=== PATIENT | male | born 1960 | race African-American/Black ===

== ENCOUNTER 2016-07-11 12:57 | Observation (INO) ==
--- NOTE | 2016-07-11 13:39 | Emergency Department Note ---
Holden Link Meredith, am scribing for, and in the presence of, Toby Titus MD 13: 20. Ariela Link James D, MD, personally performed the services described in this documentation, ascribed by Flor Hatch in my presence, and it is both accurate and complete [id number] . Arrival - Arrival Chief Complaint: Chest Pain Stated Complaint: CHEST PAIN ED Nursing Triage Note: Pt c/o left sided chest pain with SOB and nausea since last wk. Mode of Arrival: Ambulatory Limitations: No Limitations Source: Patient, Old Records Reviewed, RN Notes Reviewed Time Seen by Provider: 07/11/16 13:16 - History of Present Illness HPI Narrative: Pt is a 56 y/o black male reporting to the ED with c/o left-sided chest pain since last week. He states it's a "funny feeling like swelling". Pt denies any shortness of breath or nausea. He is a current everyday smoker. Pt has a history of HTN, COPD, and chronic back pain. Onset (ago): week(s) Allergies/Adverse Reactions: Allergies Allergy/AdvReac Type Severity Reaction Status Date / Time povidone-iodine Allergy RASH Verified 10/26/14 14:55 [From Betadine] soap [From Betadine] Allergy RASH Verified 10/26/14 14:55 Sulfa (Sulfonamide Allergy RASH Verified 06/03/16 06:53 Antibiotics) sulfamethoxazole Allergy RASH Verified 10/31/15 08:19 [From Bactrim] trimethoprim [From Bactrim] Allergy RASH Verified 10/31/15 08:19 Home Medications: Home Medications Medication Instructions Recorded Confirmed Type Lisinopril/Hctz 10-12.5 [Prinzide 1 tablet PO DAILY 10/26/14 07/11/16 History 10-12.5] Oxycodone HCl/Acetaminophen 1 each PO QID 10/26/14 07/11/16 History [Percocet 10-325 mg Tablet] Clotrimazole/Betameth Cream 1 applic TOP BID #60 gm 01/18/15 07/11/16 Rx [Lotrisone Cream] Ketorolac Tab [Toradol Tab] 10 mg PO Q8H #14 tablet 06/21/15 07/11/16 Rx Ondansetron Odt Tab [Zofran Odt] 4 mg PO Q6H #15 tablet 06/21/15 07/11/16 Rx Fluticasone/Salmeterol 250-50 1 puff INH BID #1 diskus 07/12/16 Rx [Advair 250-50] Nicotine 21 mg/24 Hr Patch 1 patch TRANSDERM DAILY PRN #0 07/12/16 Rx [Nicoderm CQ 21 mg/24 hr Patch] patch Review of System - Review of System 12 point system: reviewed and no additional remarkable complaints except as stated - Review of System Respiratory: Present: as per HPI. Absent: respiratory distress Cardiovascular: Present: as per HPI, chest pain Gastrointestinal: Present: as per HPI. Absent: nausea Medical,Surgical,& Family Hx - Medical History Cardio: History of: Hypertension Respiratory: History of: COPD Musculoskeletal: History of: Back/Neck Problems (chronic back pain) - Social History Smoking Status: Current every day smoker Exam Physical Examination: GENERAL: This is a well-nourished, well-developed black male in no apparent distress. VITAL SIGNS: Temperature: 96.8, Pulse: 76, Respirations: 18, Blood pressure: 138 /78, O2 Saturation: 97 HEENT: Head is normocephalic and atraumatic. Pupils are equally round and reactive to light. Extraocular movement are intact. Oropharynx is benign with moist mucous membranes. NECK: Neck is soft and supple without tenderness. There are no masses. There is no lymphadenopathy. LUNGS: Lungs are clear to auscultation bilaterally. Chest rises symmetrically. There is no chest wall tenderness. CV: Heart is regular rate and rhythm without murmurs, rubs, or gallops. ABDOMEN: Abdomen is soft, non-tender to palpation. There are no abnormal masses palpated. There is no organomegaly. Bowel sounds are present and active. SKIN: Skin is warm and dry. No rash. EXTREMITIES: Patient has full range of motion without tenderness. There is no pedal edema. NEUROLOGIC: Awake, alert, and oriented x4. Cranial nerves II through XII are grossly intact. There are no motorsensory deficits. PSYCHIATRIC: Normal affect. Normal mood. Vital Signs: Vital Signs Temperature 97.9 F 07/12/16 07:26 Pulse Rate 68 07/12/16 07:26 Respiratory Rate 18 07/12/16 07:26 Blood Pressure 128/67 07/12/16 07:26 O2 Sat by Pulse Oximetry 98 07/12/16 07:26 Course - Consultations Consultation #1: Discussed with hospitalist. Patient will be admitted to their service. Time: 14:53 Results - Labs CBC & BMP: 07/11/16 13:35 07/11/16 15:40 Lab Results: I have reviewed the patients labs Labs: Laboratory Tests 07/11/16 07/11/16 13:35 13:35 WBC 7.0 RBC 4.73 Hgb 14.6 Hct 43.7 Plt Count 330 MPV 9.4 L Neut % (Auto) 36.2 L INR 1.0 PT Patient/Control Mix 11.1 Circ Anticoag PTT 33.1 - EKG EKG results: interpreted by ERMD - Impressions EKG: Normal sinus rhythm with occasional supraventricular premature complexes with rate of 69. Left anterior fascicular block, left axis deviation, LVH, nonspecific ST-T wave changes. - Diagnostic Findings Procedure: Chest x-ray: image reviewed by me (No cardio megaly, no pleural effusions, no infiltrates. Hardware in the neck.) Disposition Clinical Impression: Chest pain Case discussed with: patient Disposition: Still a Patient Condition: Stable New Prescriptions: Rx's Medication Instructions Recorded Fluticasone/Salmeterol 250-50 1 puff INH BID #1 diskus 07/12/16 [Advair 250-50] Nicotine 21 mg/24 Hr Patch 1 patch TRANSDERM DAILY PRN #0 07/12/16 [Nicoderm CQ 21 mg/24 hr Patch] patch
[2016-07-11] MEDS ORDERED: ASPIRIN 325 MG TABLET PO STA (13:42)
--- NOTE | 2016-07-11 13:45 | EKG Report ---
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
[2016-07-11 13:49] LABS: Basophils # 0.1 10*3/uL (0.0-0.2); Basophils % 0.7 % (0.0-0.8); Eosinophils # 0.3 10*3/uL (0.0-0.87); Eosinophils % 4.5 % (0.00-10.9); Hematocrit 43.7 VOL% (42.0-52.0); Hemoglobin 14.6 GM/DL (14.0-18.0); Immature Granulocytes % 0.4 %; Immature Granulocytes Absolute 0.03 #; Lymphocytes # 3.5 10*3/uL (1.4-4.0); Lymphocytes % 50.3 % (21.2-54.2); Mean Corpuscular HGB Conc 33.4 GM/DL (32-36); Mean Corpuscular Hemoglobin 31 PG (27-34); Mean Corpuscular Volume 92.4 FL (87-102); Mean Platelet Volume 9.4 FL (9.6-12.0); Monocytes # 0.6 10*3/uL (0.11-0.8); Monocytes % 7.9 % (1.7-12.7); Neutrophils # 2.5 10*3/uL (1.4-7.4); Neutrophils % 36.2 % (38.7-73.9); Platelet Count 330 T/CUMM (130-400); Red Blood Count 4.73 MC/CUMM (3.8-5.5); Red Cell Distribution Width 12.8 % (9.3-17.3)
[2016-07-11 13:54] LABS: PT Patient Result 11.1 SECS; Partial Thromboplastin Time 33.1 SECS (0-40)
--- NOTE | 2016-07-11 14:30 | XRay Report ---
History: Chest pain Date: 07/11/2016 at 1:54 PM Study: Chest x-ray PA and lateral Comparison exam: No previous chest x-rays available The cardiac silhouette is borderline prominent. There is no mediastinal mass. The pulmonary vasculature is not engorged. The lungs and pleural spaces are generally clear. There is no acute infiltrate. There is mild thoracic spondylosis. Surgical hardware from previous cervical fusion overlies the lower cervical spine. Impression: No acute cardiopulmonary process PROCEDURE INTERPRETED AT [facility] DEPARTMENT OF RADIOLOGY Final Report Signed by: Dr. Kim Olivarez
[2016-07-11] MEDS ORDERED: ASPIRIN 325 MG TABLET ONE (14:42)
[2016-07-11 15:00] LABS: Eosinophils 2 % (0-10); Lymphocytes 57 % (20-55); Platelet Estimate Normal; Segmented Neutrophils 35 % (50-85); Total Cells Counted 100
[2016-07-11] MEDS ORDERED: ZALEPLON 5 MG CAPSULE PO PRN (15:26)
[2016-07-11] MEDS ORDERED: BISACODYL 5 MG TABLET PO PRN (15:26)
[2016-07-11] MEDS ORDERED: NICOTINE 21 MG/24 HR PATCH TRANSDERM PRN (15:26)
[2016-07-11] MEDS ORDERED: ONDANSETRON 4 MG/2 ML VIAL IV PRN (15:26)
--- NOTE | 2016-07-11 15:36 | Hospitalist History & Physical ---
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 Dejesus is a 56 year old male diagnosis of COPD with home Advair inhaler which he does not use due to not understanding the device. He is in the process of quitting smoking. He reports one week of sharp, focal pain in the left anterior chest lasting seconds, not brought on by anything he can identify more likely to occur when he is inactive. He has had multiple times daily over this interval and presented to the ER as he was no better. He denies change in cough, fever. He did have what sounds like viral gastroenteritis recently which has resolved. He has chronic axial skeletal disease followed in the pain clinic with recent spine injection. Home Medications Medication Instructions Recorded Confirmed Type Lisinopril/Hctz 10-12.5 [Prinzide 1 tablet PO DAILY 10/26/14 06/21/15 History 10-12.5] Oxycodone HCl/Acetaminophen 1 each PO QID 10/26/14 06/21/15 History [Percocet 10-325 mg Tablet] Clotrimazole/Betameth Cream 1 applic TOP BID #60 gm 01/18/15 06/21/15 Rx [Lotrisone Cream] Ketorolac Tab [Toradol Tab] 10 mg PO Q8H #14 tablet 06/21/15 Rx Ondansetron Odt Tab [Zofran Odt] 4 mg PO Q6H #15 tablet 06/21/15 Rx Allergies Allergy/AdvReac Type Severity Reaction Status Date / Time povidone-iodine Allergy RASH Verified 10/26/14 14:55 [From Betadine] soap [From Betadine] Allergy RASH Verified 10/26/14 14:55 Sulfa (Sulfonamide Allergy RASH Verified 06/03/16 06:53 Antibiotics) sulfamethoxazole Allergy RASH Verified 10/31/15 08:19 [From Bactrim] trimethoprim [From Bactrim] Allergy RASH Verified 10/31/15 08:19 Medical,Surgical,& Family Hx - Medical History Cardio: History of: Hypertension (10 years) Respiratory: History of: COPD (No active therapy) Musculoskeletal: History of: Back/Neck Problems (chronic back pain) - Surgical History Abdominal Surgeries: Surgical HX of: Appendectomy Orthopedic Surgeries: Surgical HX of;: Spinal Surgery (anterior and posterior cervical fusions) - Social History Smoking Status: Current every day smoker (currently 5 cigarettes per day with nicotine patch) - Constitutional Constitutional: Absent: fever(s) - Cardiovascular Cardiovascular: Present: chest pain at rest. Absent: chest pain with activity, edema, palpitations - Respiratory Respiratory: Absent: cough, dyspnea, hemoptysis, pain on inspiration - Gastrointestinal Gastrointestinal: Present: dysphagia (upper esophageal). Absent: abdominal pain , diarrhea, hematemesis, hematochezia, melena, nausea, jaundice - Genitourinary Genitourinary: Absent: hematuria - Neurological Neurological: Absent: convulsions, focal weakness, syncope Exam - Constitutional Vitals: Period Temp Pulse Resp BP Sys/Todd Pulse Ox Last 24 Hr 96.8 F 76 18 138/78 97 General appearance: normal weight - Head Head exam: Present: normal inspection - Neck Neck exam: Absent: lymphadenopathy, thyromegaly - Respiratory Respiratory exam: Present: prolonged expiratory phase, wheezes. Absent: rales, rhonchi - Cardiovascular Cardiovascular exam: Present: regular rate and rhythm - GI/Abdominal GI/Abdominal exam: Present: normal bowel sounds. Absent: mass, organomegaly, tenderness - Extremities Exam Extremities exam: Absent: edema - Neurological Exam Neurological exam: Present: alert, oriented X3 Results - Labs CBC & BMP: 07/11/16 13:35 - Impressions Sinus with APC, borderline AK shortening, left anterior fasicular block - Diagnostic Findings Procedure: Chest x-ray: image reviewed by me (prominent pulmonary artery segments with calcified hilar notes, coarse lung markings)
[2016-07-11 16:15] LABS: Bilirubin,Total 0.4 MG/DL (0.2-1.0); Calcium 8.9 MG/DL (8.5-10.1); Potassium 3.9 MMOL/L (3.5-5.1); Total Protein 6.6 G/DL (6.4-8.3)
--- NOTE | 2016-07-11 16:23 | EKG Report ---
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
[2016-07-11] MEDS ORDERED: oxyCODONE/ACETAMINOPHEN 5-325 MG TABLET PO PRN (17:00)
[2016-07-11] MEDS ORDERED: ENOXAPARIN 40 MG/0.4 ML SYRINGE SUBCUT SCH ×2 (18:30→21:00)
[2016-07-11] MEDS: FLUTICASONE/SALMETEROL 250-50 DISKUS 14 DOSE INH SCH (20:59)
[2016-07-12 07:26] VITALS: BP 128/67
--- NOTE | 2016-07-12 07:36 | Discharge Summary ---
Hospital Course - Hospital Course Hospital Course: 56 yo male smoker with untreated COPD presented with wheezes and intermittent pleuritic type pain with clear chest xray and no cough or sputum production. He was hospitalized and initiated on active treatment with instruction for bronchospasm with good clearing in house. He is being released to continue follow-up at pain management and will use daily Advair 250/50 with Proventil rescue inhaler. Diagnosis - Discharge Diagnosis (1) COPD (chronic obstructive pulmonary disease) Status: Chronic (2) Chronic pain disorder Status: Chronic (3) Hypertension Status: Chronic Discharge Plan - Discharge Data Disposition: Disch To Home/Self Care Condition at Discharge: Stable Discharge Diet: advance to your usual diet Activity: resume usual activities as tolerated - Discharge Medications New Fluticasone/Salmeterol 250-50 [Advair 250-50] 1 puff INH BID #1 diskus Nicotine 21 mg/24 Hr Patch [Nicoderm CQ 21 mg/24 hr Patch] 1 patch TRANSDERM DAILY PRN #0 patch PRN Reason: Nicotine Cravings Continue Lisinopril/Hctz 10-12.5 [Prinzide 10-12.5] 1 tablet PO DAILY Oxycodone HCl/Acetaminophen [Percocet 10-325 mg Tablet] 1 each PO QID Clotrimazole/Betameth Cream [Lotrisone Cream] 1 applic TOP BID #60 gm Ketorolac Tab [Toradol Tab] 10 mg PO Q8H #14 tablet Ondansetron Odt Tab [Zofran Odt] 4 mg PO Q6H #15 tablet - Follow Up or Referral - Forms/Instructions Exam - Constitutional Vitals: Period Temp Pulse Resp BP Sys/Todd Pulse Ox Last 24 Hr 96.8 F-98.9 F 67-76 16-18 128-183/60-89 96-98 Discharge Results Labs on day of discharge: Labs from last 24 hours 07/11/16 15:40 Sodium 143 Potassium 3.9 Chloride 103 Carbon Dioxide 31 Anion Gap 12.9 BUN 10 Creatinine 0.98 GFR Calculation 115 BUN/Creatinine Ratio 10.00 Glucose 82 Calculated Osmolality 282.0 Calcium 8.9 Total Bilirubin 0.40 AST 8 ALT 16 Alkaline Phosphatase 116 Total Protein 6.6 Albumin 4.0 Globulin 2.6 Albumin/Globulin Ratio 1.5 DS: Provider Date of admission: 07/11/16 15:26 Primary care physician: Guille Esparza MD Attending physician on admission: Turner Franco MD Consults: 07/11/16 18:38 Consult to Pharmacy [CONS] Routine Reason for Pharmacy Consult: Adjust Meds Renal Funct Discharging clinician: Turner Franco MD Expected date of discharge: 07/12/16
[2016-07-12] MEDS: FLUTICASONE/SALMETEROL 250-50 DISKUS 14 DOSE INH SCH (08:30)
[2016-07-12] MEDS ORDERED: LISINOPRIL/HCTZ 10-12.5 MG TABLET PO SCH (09:00)
== END 2016-07-12 09:50 | disposition home or self-care (01) ==
LOC: N.ED 12:57 → N.EDINP 12:57 → N.5E 18:17
PROVIDERS: ADMIT Internal Medicine Cardiovascular Disease; ATTEND Internal Medicine Cardiovascular Disease

== ENCOUNTER 2018-06-03 14:11 | Observation (INO) ==
[2018-06-03] MEDS ORDERED: DILTIAZEM 50 MG/10 ML VIAL IV STA ×2 (14:50→16:50)
[2018-06-03] MEDS ORDERED: DILTIAZEM 25 MG/5 ML VIAL IV ONE (15:09)
[2018-06-03 15:18] LABS: Basophils # 0.1 10*3/uL (0.0-0.2); Basophils % 0.6 % (0.0-0.8); Eosinophils # 0.2 10*3/uL (0.0-0.87); Eosinophils % 2.6 % (0.00-10.9); Hematocrit 41.7 VOL% (42.0-52.0); Hemoglobin 13.4 GM/DL (14.0-18.0); Immature Granulocytes % 0.2 %; Immature Granulocytes Absolute 0.02 #; Lymphocytes % 36.4 % (21.2-54.2); Mean Corpuscular HGB Conc 32.1 GM/DL (32-36); Mean Corpuscular Hemoglobin 30 PG (27-34); Mean Corpuscular Volume 94.6 FL (87-102); Mean Platelet Volume 9.6 FL (9.6-12.0); Monocytes # 0.5 10*3/uL (0.11-0.8); Monocytes % 6.5 % (1.7-12.7); Neutrophils # 4.5 10*3/uL (1.4-7.4); Neutrophils % 53.7 % (38.7-73.9); Platelet Count 283 T/CUMM (130-400); Red Blood Count 4.41 MC/CUMM (3.8-5.5); Red Cell Distribution Width 13.1 % (9.3-17.3); White Blood Count 8.3 T/CUMM (4-12)
[2018-06-03] MEDS: dilTIAZem Drip 125 MG/125 ML PREMIX IV SCH (15:18)
[2018-06-03 15:25] LABS: PT Patient Result 10.7 SECS; Partial Thromboplastin Time 31.1 SECS (0-40)
[2018-06-03 16:03] LABS: Apearance,Urine CLEAR (Clear); Bilirubin,Urine Negative (Negative); Blood, Urine Negative (Negative); Glucose,Urine (UA) Negative (Negative); Ketones,Urine Negative (Negative); Nitrite,Urine Negative (Negative); Protein,Urine Negative; RBC,Urine <1 /HPF (0-4); Urine Color Straw (Yellow); Urine Specific Gravity 1.004 (1.001-1.035); Urine Urobilinogen < 2.0 EU/DL (0.2-1.0); WBC,Urine <1 /HPF (0-6)
[2018-06-03 16:04] LABS: Albumin 4.1 G/DL (3.4-5.0); Bilirubin,Total 0.4 MG/DL (0.2-1.0); Calcium 8.7 MG/DL (8.5-10.1); Osmolality,Calculated 276.5 MOS/KG (273-304); Potassium 3.9 MMOL/L (3.5-5.1); Thyroid Stimulating Hormone 0.614 uIU/ml (0.358-3.74); Total Protein 6.8 G/DL (6.4-8.3)
[2018-06-03 16:12] LABS: Barbiturates Screen,Urine Negative (Negative); Benzodiazepines Screen,Urine Negative (Negative); Cannabinoid Screen,Urine Negative (Negative); Opiate Screen,Urine Positive (Negative); Phencyclidine Screen,Urine Negative (Negative)
[2018-06-03] MEDS ORDERED: DOCUSATE SODIUM 100 MG CAPSULE PO PRN (16:32)
[2018-06-03] MEDS ORDERED: ZALEPLON 5 MG CAPSULE PO PRN (16:32)
[2018-06-03] MEDS ORDERED: ONDANSETRON 4 MG/2 ML VIAL IV PRN (16:32)
[2018-06-03] MEDS ORDERED: ACETAMINOPHEN 325 MG TABLET PO PRN (16:32)
[2018-06-03] MEDS ORDERED: DIGOXIN 0.5 MG/2 ML AMP IV STA (16:41)
[2018-06-03] MEDS: ENOXAPARIN 80 MG/0.8 ML SYRINGE SUBCUT SCH (17:42)
[2018-06-03] MEDS ORDERED: NON-FORMULARY MEDICATION (Buprenorphine Hcl/Naloxone Hcl [Suboxone 8 Mg-2 Mg Sl Film] 1 EA SL PRN (17:56)
[2018-06-03] MEDS ORDERED: NICOTINE 21 MG/24 HR PATCH TRANSDERM PRN (17:56)
[2018-06-03] MEDS: SODIUM CHLORIDE 0.9% 1,000 ML IV SCH (18:24)
[2018-06-03] MEDS ORDERED: buPROPion SR 150 MG TABLET PO SCH (21:00)
[2018-06-03] MEDS ORDERED: ENOXAPARIN 40 MG/0.4 ML SYRINGE SUBCUT SCH (21:00)
[2018-06-04] MEDS: SODIUM CHLORIDE 0.9% 1,000 ML IV SCH ×2 (01:04→10:09)
[2018-06-04 04:46] LABS: Basophils % 0.5 % (0.0-0.8); Eosinophils # 0.2 10*3/uL (0.0-0.87); Eosinophils % 2.8 % (0.00-10.9); Hematocrit 44.5 VOL% (42.0-52.0); Hemoglobin 13.8 GM/DL (14.0-18.0); Immature Granulocytes % 0.1 %; Immature Granulocytes Absolute 0.01 #; Lymphocytes # 3.2 10*3/uL (1.4-4.0); Lymphocytes % 42.6 % (21.2-54.2); Mean Corpuscular Hemoglobin 30 PG (27-34); Mean Corpuscular Volume 97.8 FL (87-102); Mean Platelet Volume 9.6 FL (9.6-12.0); Monocytes # 0.5 10*3/uL (0.11-0.8); Monocytes % 6.3 % (1.7-12.7); Neutrophils # 3.6 10*3/uL (1.4-7.4); Neutrophils % 47.7 % (38.7-73.9); Platelet Count 260 T/CUMM (130-400); Red Blood Count 4.55 MC/CUMM (3.8-5.5); Red Cell Distribution Width 12.9 % (9.3-17.3); White Blood Count 7.5 T/CUMM (4-12)
[2018-06-04 05:03] LABS: Calcium 8.4 MG/DL (8.5-10.1); Osmolality,Calculated 279.4 MOS/KG (273-304); Potassium 3.8 MMOL/L (3.5-5.1)
[2018-06-04] MEDS: ENOXAPARIN 80 MG/0.8 ML SYRINGE SUBCUT SCH (05:47)
[2018-06-04] MEDS ORDERED: POTASSIUM CHLORIDE 20 MEQ TABLET PO SCH (08:00)
[2018-06-04] MEDS ORDERED: LISINOPRIL/HCTZ 10-12.5 MG TABLET PO SCH (09:00)
[2018-06-04] MEDS ORDERED: diphenhydrAMINE CAP 25 MG CAPSULE PO ONE (09:07)
[2018-06-04] MEDS ORDERED: POTASSIUM CHLORIDE RIDER 10 MEQ in PREMIX 1 EACH IV PRN (09:07)
[2018-06-04] MEDS ORDERED: DIAZEPAM 5 MG TABLET PO ONE (09:07)
[2018-06-04] MEDS ORDERED: MAGNESIUM SULF RIDER 2 GM in PREMIX 1 EACH IV PRN (09:07)
[2018-06-04] MEDS ORDERED: ASPIRIN CHEW 81 MG TABLET PO ONE (10:50)
[2018-06-04] MEDS: dilTIAZem Drip 125 MG/125 ML PREMIX IV SCH (12:04)
[2018-06-04] MEDS ORDERED: HEPARIN/NACL 0.9% 2 UNITS/ML 500 ML IV ONE ×2 (13:51→14:07)
[2018-06-04] MEDS ORDERED: VERAPAMIL 5 MG/2 ML VIAL ONE (14:18)
[2018-06-04] MEDS ORDERED: NITROGLYCERIN DRIP 50 MG/250 ML BOTTLE IV ONE (14:18)
[2018-06-04] MEDS ORDERED: ENOXAPARIN 60 MG/0.6 ML SYRINGE ONE (14:47)
[2018-06-04] MEDS ORDERED: DILTIAZEM CD 120 MG CAPSULE PO SCH (15:00)
[2018-06-04 16:36] VITALS: BP 151/63
[2018-06-04] MEDS ORDERED: FLECAINIDE 50 MG TABLET PO SCH (21:00)
[2018-06-05] MEDS ORDERED: APIXABAN 5 MG TABLET PO SCH (09:00)
== END 2018-06-04 18:35 | disposition home or self-care (01) ==
LOC: N.TELEN 14:11 → N.ED 14:11 → N.TELEN 18:02
PROVIDERS: ADMIT Internal Medicine Geriatric Medicine; ATTEND Internal Medicine Geriatric Medicine
PROC: CLCCHCL (ICD-10-PCS; 2018-06-04 14:45)

== ENCOUNTER 2018-06-10 23:04 | Inpatient (IN) ==
[2018-06-10] MEDS ORDERED: ALUM/MAG/SIMETH/LIDO VISC 1:1 30 ML BOTTLE PO STA (23:24)
[2018-06-10] MEDS ORDERED: DILTIAZEM 50 MG/10 ML VIAL IV STA (23:24)
[2018-06-10] MEDS ORDERED: MORPHINE 4 MG/1 ML VIAL IV STA (23:24)
[2018-06-10] MEDS ORDERED: ONDANSETRON 4 MG/2 ML VIAL IV STA (23:24)
[2018-06-10] MEDS ORDERED: NITROGLYCERIN 2% OINT 1 INCH/GM PACK TOP STA (23:24)
[2018-06-10] MEDS ORDERED: ASPIRIN 325 MG TABLET PO STA (23:24)
[2018-06-10 23:34] LABS: Basophils # 0.1 10*3/uL (0.0-0.2); Basophils % 0.6 % (0.0-0.8); Eosinophils # 0.3 10*3/uL (0.0-0.87); Eosinophils % 3.4 % (0.00-10.9); Hematocrit 43.8 VOL% (42.0-52.0); Hemoglobin 14.2 GM/DL (14.0-18.0); Immature Granulocytes % 0.3 %; Immature Granulocytes Absolute 0.03 #; Lymphocytes # 3.5 10*3/uL (1.4-4.0); Lymphocytes % 36.7 % (21.2-54.2); Mean Corpuscular HGB Conc 32.4 GM/DL (32-36); Mean Corpuscular Hemoglobin 31 PG (27-34); Mean Corpuscular Volume 94.6 FL (87-102); Mean Platelet Volume 9.3 FL (9.6-12.0); Monocytes # 0.7 10*3/uL (0.11-0.8); Monocytes % 6.9 % (1.7-12.7); Neutrophils % 52.1 % (38.7-73.9); Platelet Count 253 T/CUMM (130-400); Red Blood Count 4.63 MC/CUMM (3.8-5.5); Red Cell Distribution Width 12.7 % (9.3-17.3); White Blood Count 9.6 T/CUMM (4-12)
[2018-06-10 23:38] LABS: Apearance,Urine CLEAR (Clear); Bilirubin,Urine Negative (Negative); Blood, Urine Small mg/dL (Negative); Glucose,Urine (UA) Negative (Negative); Ketones,Urine Negative (Negative); Nitrite,Urine Negative (Negative); Protein,Urine Negative; RBC,Urine 2 /HPF (0-4); Squamous Epithelial Cell,Urine Occasional /HPF (0-10); Urine Color Yellow (Yellow); Urine Specific Gravity 1.013 (1.001-1.035); Urine Urobilinogen < 2.0 EU/DL (0.2-1.0); WBC,Urine 1 /HPF (0-6)
[2018-06-10] MEDS: dilTIAZem Drip 125 MG/125 ML PREMIX IV SCH (23:38)
[2018-06-10 23:44] LABS: PT Patient Result 10.9 SECS
[2018-06-10] MEDS ORDERED: FLECAINIDE 50 MG TABLET PO STA (23:48)
[2018-06-11 00:01] LABS: Alanine Aminotransferase 17 U/L (16-61); Albumin 3.9 G/DL (3.4-5.0); Alkaline Phosphatase 119 U/L (45-117); Aspartate Amino Transferase 7 U/L (0-37); Bilirubin,Total < 0.39 MG/DL (0.2-1.0); Blood Urea Nitrogen 20 MG/DL (7-18); Calcium 8.5 MG/DL (8.5-10.1); Glucose 110 MG/DL (74-106); Potassium 3.4 MMOL/L (3.5-5.1); Sodium 136 MMOL/L (136-145); Total Protein 7.3 G/DL (6.4-8.3)
[2018-06-11 00:03] LABS: Barbiturates Screen,Urine Negative (Negative); Benzodiazepines Screen,Urine Negative (Negative); Cannabinoid Screen,Urine Negative (Negative); Opiate Screen,Urine Positive (Negative); Phencyclidine Screen,Urine Negative (Negative)
[2018-06-11] MEDS ORDERED: POTASSIUM CHLORIDE 20 MEQ TABLET PO STA (00:20)
[2018-06-11] MEDS ORDERED: POTASSIUM CHLORIDE RIDER 10 MEQ in PREMIX 1 EACH IV PRN (03:20)
[2018-06-11] MEDS ORDERED: ACETAMINOPHEN 325 MG TABLET PO PRN (04:28)
[2018-06-11] MEDS ORDERED: DOCUSATE SODIUM 100 MG CAPSULE PO PRN (04:28)
[2018-06-11] MEDS ORDERED: ONDANSETRON 4 MG/2 ML VIAL IV PRN (04:28)
[2018-06-11] MEDS ORDERED: NAPROXEN 500 MG TABLET PO PRN (04:44)
[2018-06-11] MEDS ORDERED: NON-FORMULARY MEDICATION (Buprenorphine Hcl/Naloxone Hcl [Suboxone 8 Mg-2 Mg Sl Film] 1 EA SL PRN (04:44)
[2018-06-11] MEDS: dilTIAZem Drip 125 MG/125 ML PREMIX IV SCH ×3 (06:06→23:49)
[2018-06-11] MEDS ORDERED: FLECAINIDE 50 MG TABLET PO SCH ×2 (09:00→10:00)
[2018-06-11] MEDS ORDERED: DILTIAZEM CD 120 MG CAPSULE PO SCH ×2 (09:00→21:00)
[2018-06-11] MEDS ORDERED: LISINOPRIL/HCTZ 10-12.5 MG TABLET PO SCH (09:00)
[2018-06-11] MEDS ORDERED: MIDAZOLAM 2 MG/2 ML VIAL ONE (09:06)
[2018-06-11 09:14] LABS: Basophils % 0.4 % (0.0-0.8); Eosinophils # 0.1 10*3/uL (0.0-0.87); Eosinophils % 1.9 % (0.00-10.9); Hematocrit 41.5 VOL% (42.0-52.0); Hemoglobin 13.8 GM/DL (14.0-18.0); Immature Granulocytes % 0.6 %; Immature Granulocytes Absolute 0.04 #; Lymphocytes # 1.8 10*3/uL (1.4-4.0); Lymphocytes % 24.8 % (21.2-54.2); Mean Corpuscular HGB Conc 33.3 GM/DL (32-36); Mean Corpuscular Hemoglobin 31 PG (27-34); Mean Corpuscular Volume 94.5 FL (87-102); Mean Platelet Volume 9.4 FL (9.6-12.0); Monocytes # 0.4 10*3/uL (0.11-0.8); Monocytes % 5.3 % (1.7-12.7); Neutrophils # 4.8 10*3/uL (1.4-7.4); Platelet Count 242 T/CUMM (130-400); Red Blood Count 4.39 MC/CUMM (3.8-5.5); Red Cell Distribution Width 12.8 % (9.3-17.3); White Blood Count 7.2 T/CUMM (4-12)
[2018-06-11] MEDS ORDERED: FLECAINIDE 100 MG TABLET PO ONE (09:26)
[2018-06-11 09:32] LABS: Calcium 8.3 MG/DL (8.5-10.1); Osmolality,Calculated 278.7 MOS/KG (273-304); Potassium 3.9 MMOL/L (3.5-5.1)
[2018-06-11] MEDS: APIXABAN 5 MG TABLET PO SCH ×2 (09:45→20:23)
[2018-06-11] MEDS: POTASSIUM CHLORIDE 20 MEQ TABLET PO SCH (09:45)
[2018-06-11] MEDS ORDERED: MORPHINE 4 MG/1 ML VIAL IV ONE (09:53)
[2018-06-11] MEDS: PANTOPRAZOLE 20 MG TABLET PO SCH (10:04)
[2018-06-11] MEDS ORDERED: fentaNYL 100 MCG/2 ML VIAL ONE (12:34)
[2018-06-11] MEDS: MAGNESIUM OXIDE 400 MG TABLET PO SCH ×2 (15:26→20:23)
[2018-06-11] MEDS ORDERED: MIDAZOLAM 2 MG/2 ML VIAL IV ONE (16:01)
[2018-06-11] MEDS ORDERED: fentaNYL 100 MCG/2 ML VIAL IV ONE ×2 (16:01→17:00)
[2018-06-11] MEDS: buPROPion SR 150 MG TABLET PO SCH (20:23)
[2018-06-12] MEDS: dilTIAZem Drip 125 MG/125 ML PREMIX IV SCH (04:46)
[2018-06-12 05:11] LABS: Basophils % 0.2 % (0.0-0.8); Eosinophils # 0.2 10*3/uL (0.0-0.87); Eosinophils % 1.9 % (0.00-10.9); Hematocrit 44.4 VOL% (42.0-52.0); Hemoglobin 14.4 GM/DL (14.0-18.0); Immature Granulocytes % 0.2 %; Immature Granulocytes Absolute 0.02 #; Lymphocytes # 2.1 10*3/uL (1.4-4.0); Lymphocytes % 26.4 % (21.2-54.2); Mean Corpuscular HGB Conc 32.4 GM/DL (32-36); Mean Corpuscular Hemoglobin 31 PG (27-34); Mean Corpuscular Volume 94.1 FL (87-102); Mean Platelet Volume 9.8 FL (9.6-12.0); Monocytes # 0.6 10*3/uL (0.11-0.8); Monocytes % 7.9 % (1.7-12.7); Neutrophils # 5.1 10*3/uL (1.4-7.4); Neutrophils % 63.4 % (38.7-73.9); Platelet Count 247 T/CUMM (130-400); Red Blood Count 4.72 MC/CUMM (3.8-5.5); Red Cell Distribution Width 12.8 % (9.3-17.3); White Blood Count 8.1 T/CUMM (4-12)
[2018-06-12 05:40] LABS: Calcium 8.9 MG/DL (8.5-10.1); Osmolality,Calculated 277.7 MOS/KG (273-304); Potassium 3.8 MMOL/L (3.5-5.1)
[2018-06-12 05:43] LABS: Calcium 8.9 MG/DL (8.5-10.1); Osmolality,Calculated 277.7 MOS/KG (273-304); Potassium 3.9 MMOL/L (3.5-5.1)
[2018-06-12] MEDS ORDERED: METOPROLOL TARTRATE 5 MG/5 ML VIAL IV ONE (06:54)
[2018-06-12] MEDS ORDERED: ceFAZolin 1,000 MG in SYRINGE 1 EACH IV ONE (08:33)
[2018-06-12] MEDS ORDERED: ceFAZolin 1,000 MG VIAL IRRIG ONE (08:33)
[2018-06-12] MEDS ORDERED: DILTIAZEM CD 240 MG CAPSULE PO SCH (09:00)
[2018-06-12] MEDS ORDERED: METOPROLOL TARTRATE 25 MG TABLET PO SCH (09:00)
[2018-06-12] MEDS ORDERED: MIDAZOLAM 2 MG/2 ML VIAL ONE (13:24)
[2018-06-12] MEDS ORDERED: fentaNYL 100 MCG/2 ML VIAL ONE (13:24)
[2018-06-12] MEDS ORDERED: LIDOCAINE 1% 20 ML VIAL ONE ×2 (13:24→14:12)
[2018-06-12] MEDS ORDERED: ceFAZolin 1,000 MG VIAL ONE (13:24)
[2018-06-12] MEDS ORDERED: HEPARIN/NACL 0.9% 2 UNITS/ML 500 ML IV ONE (13:24)
[2018-06-12] MEDS ORDERED: TISSUE ADHESIVE 1 EACH APPLICATOR TOP ONE (13:25)
[2018-06-12] MEDS ORDERED: SODIUM CHLORIDE 0.9% 500 ML IV ONE (13:46)
[2018-06-12] MEDS: DILTIAZEM 60 MG TABLET PO SCH ×2 (16:25→21:15)
[2018-06-12] MEDS: oxyCODONE/ACETAMINOPHEN 5-325 MG TABLET PO PRN ×2 (16:26→21:14)
[2018-06-12] MEDS ORDERED: METOPROLOL TARTRATE 50 MG TABLET PO ONE (16:36)
[2018-06-12] MEDS: MAGNESIUM OXIDE 400 MG TABLET PO SCH ×3 (17:48→21:14)
[2018-06-12] MEDS: POTASSIUM CHLORIDE 20 MEQ TABLET PO SCH (17:48)
[2018-06-12] MEDS: PANTOPRAZOLE 20 MG TABLET PO SCH (17:50)
[2018-06-12] MEDS: SODIUM CHLORIDE 0.9% 1,000 ML IV SCH (18:00)
[2018-06-12] MEDS: APIXABAN 5 MG TABLET PO SCH (18:58)
[2018-06-12] MEDS: buPROPion SR 150 MG TABLET PO SCH (21:14)
[2018-06-12] MEDS: SOTALOL 80 MG TABLET PO SCH (21:14)
[2018-06-12] MEDS: ceFAZolin 1,000 MG in SYRINGE 1 EACH IV SCH (21:15)
[2018-06-13 05:23] LABS: Basophils % 0.4 % (0.0-0.8); Eosinophils # 0.2 10*3/uL (0.0-0.87); Eosinophils % 2.6 % (0.00-10.9); Hematocrit 43.9 VOL% (42.0-52.0); Hemoglobin 14.1 GM/DL (14.0-18.0); Immature Granulocytes % 0.2 %; Immature Granulocytes Absolute 0.02 #; Lymphocytes # 2.6 10*3/uL (1.4-4.0); Lymphocytes % 30.2 % (21.2-54.2); Mean Corpuscular HGB Conc 32.1 GM/DL (32-36); Mean Corpuscular Hemoglobin 30 PG (27-34); Mean Corpuscular Volume 94.2 FL (87-102); Mean Platelet Volume 9.8 FL (9.6-12.0); Monocytes # 0.8 10*3/uL (0.11-0.8); Neutrophils # 4.9 10*3/uL (1.4-7.4); Neutrophils % 57.6 % (38.7-73.9); Platelet Count 248 T/CUMM (130-400); Red Blood Count 4.66 MC/CUMM (3.8-5.5); White Blood Count 8.5 T/CUMM (4-12)
[2018-06-13 05:48] LABS: Calcium 8.8 MG/DL (8.5-10.1); Osmolality,Calculated 277.8 MOS/KG (273-304); Potassium 4.8 MMOL/L (3.5-5.1)
[2018-06-13] MEDS: oxyCODONE/ACETAMINOPHEN 5-325 MG TABLET PO PRN (06:21)
[2018-06-13] MEDS: ceFAZolin 1,000 MG in SYRINGE 1 EACH IV SCH (06:22)
[2018-06-13] MEDS ORDERED: ceFAZolin 1,000 MG in SYRINGE 1 EACH IV SCH (06:30)
[2018-06-13 08:00] VITALS: BP 132/80
[2018-06-13] MEDS: DILTIAZEM 60 MG TABLET PO SCH (09:12)
[2018-06-13] MEDS: SOTALOL 80 MG TABLET PO SCH (09:13)
[2018-06-13] MEDS: POTASSIUM CHLORIDE 20 MEQ TABLET PO SCH (09:13)
[2018-06-13] MEDS: MAGNESIUM OXIDE 400 MG TABLET PO SCH (09:13)
[2018-06-13] MEDS: PANTOPRAZOLE 20 MG TABLET PO SCH (09:14)
[2018-06-13] MEDS: SODIUM CHLORIDE 0.9% 1,000 ML IV SCH (09:14)
[2018-06-13] MEDS ORDERED: DILTIAZEM CD 180 MG CAPSULE PO SCH (21:00)
== END 2018-06-13 12:40 | disposition home or self-care (01) | DRG 243 ==
LOC: N.ED 23:04 → SUATTDRO 06-11 00:29 → N.EDINP 06-11 00:29 → N.ICU 06-11 00:56 → N.TELEN 06-12 15:44
PROVIDERS: ADMIT Internal Medicine; ATTEND Emergency Medicine

== ENCOUNTER 2020-09-26 06:58 | Inpatient (IN) ==
[2020-09-21 16:25] LABS: Basophils % 0.8 % (0.0-0.8); Eosinophils % 0.6 % (0.00-10.9); Hematocrit 45.8 VOL% (42.0-52.0); Hemoglobin 15.4 GM/DL (14.0-18.0); Immature Granulocytes % 0.4 %; Immature Granulocytes Absolute 0.02 #; Lymphocytes # 2.4 10*3/uL (1.4-4.0); Lymphocytes % 47.3 % (21.2-54.2); Mean Corpuscular HGB Conc 33.6 GM/DL (32-36); Mean Platelet Volume 9.9 FL (9.6-12.0); Monocytes % 11.2 % (1.7-12.7); Neutrophils % 39.7 % (38.7-73.9); Platelet Count 272 T/CUMM (130-400); Red Blood Count 4.98 MC/CUMM (3.8-5.5); Red Cell Distribution Width 12.6 % (9.3-17.3); White Blood Count 5.1 T/CUMM (4-12)
[2020-09-21 16:29] LABS: Calcium 9.3 MG/DL (8.5-10.1); Osmolality,Calculated 280.3 MOS/KG (273-304); Potassium 3.8 MMOL/L (3.5-5.1)
[2020-09-21 16:40] LABS: INR 1.1; PT Patient Result 12.2 SECS (9.8-11.9)
[~2020-09-26 06:58] MED LIST: ACETAMINOPHEN 500 MG TABLET PO ONE; DIAZEPAM 5 MG TABLET PO ONE; FAMOTIDINE 20 MG TABLET PO ONE; GABAPENTIN 400 MG CAPSULE PO ONE
[2020-09-26] MEDS ORDERED: LACTATED RINGERS 1,000 ML IV SCH (07:30)
[2020-09-26] MEDS ORDERED: HEPARIN 5,000 UNIT/1 ML VIAL ONE (07:49)
[2020-09-26] MEDS ORDERED: fentaNYL 250 MCG/5 ML VIAL ONE (07:58)
[2020-09-26] MEDS ORDERED: LIDOCAINE 2% 5 ML VIAL ONE (08:03)
[2020-09-26] MEDS ORDERED: MIDAZOLAM 2 MG/2 ML VIAL ONE (08:03)
[2020-09-26] MEDS ORDERED: ROCURONIUM 50 MG/5 ML VIAL IV ONE (08:03)
[2020-09-26] MEDS ORDERED: propofoL 200 MG/20 ML VIAL IV ONE (09:01)
[2020-09-26] MEDS ORDERED: HEPARIN 10,000 UNIT/10 ML VIAL ONE (09:01)
[2020-09-26] MEDS ORDERED: PHENYLEPHRINE 1 MG/10 ML SYRINGE IV ONE (09:01)
[2020-09-26] MEDS ORDERED: KETOROLAC 30 MG/1 ML VIAL ONE (09:02)
[2020-09-26] MEDS ORDERED: ONDANSETRON 4 MG/2 ML VIAL ONE (09:02)
[2020-09-26] MEDS ORDERED: GLYCOPYRROLATE 0.4 MG/2 ML VIAL ONE (09:02)
[2020-09-26] MEDS ORDERED: NEOSTIGMINE 10 MG/10 ML VIAL ONE ×2 (09:03)
[2020-09-26] MEDS ORDERED: TISSUE ADHESIVE 1 EACH APPLICATOR TOP ONE (09:43)
[2020-09-26] MEDS ORDERED: ONDANSETRON 4 MG/2 ML VIAL IV PRN ×2 (09:50→10:30)
[2020-09-26] MEDS ORDERED: DOCUSATE SODIUM 100 MG CAPSULE PO PRN (09:52)
[2020-09-26] MEDS: HYDROmorphone 2 MG/1 ML VIAL IV PRN ×5 (10:20→20:22)
[2020-09-26] MEDS ORDERED: SEVOFLURANE 1 UNIT/15 MINUTE INH ONE (10:21)
[2020-09-26] MEDS ORDERED: PROMETHAZINE INJ 25 MG in SODIUM CHLORIDE 0.9% 50 ML IV PRN (10:30)
[2020-09-26] MEDS ORDERED: diphenhydrAMINE 50 MG/1 ML VIAL IV PRN (10:30)
[2020-09-26] MEDS ORDERED: MEPERIDINE 25 MG/1 ML VIAL IV PRN (10:30)
[2020-09-26] MEDS: LACTATED RINGERS 1,000 ML IV SCH ×2 (10:56→21:51)
[2020-09-26] MEDS ORDERED: DIPHENHYDRAMINE HCL 25 MG PO SCH (21:00)
[2020-09-26] MEDS: SOTALOL 80 MG TABLET PO SCH (21:59)
[2020-09-26] MEDS: DILTIAZEM CD 180 MG CAPSULE PO SCH (22:00)
[2020-09-26] MEDS: BUPRENORPHINE NALOXONE BUCCAL SCH (22:02)
[2020-09-27 04:46] LABS: Hematocrit 41.9 VOL% (42.0-52.0); Hemoglobin 13.4 GM/DL (14.0-18.0)
[2020-09-27 05:07] LABS: Calcium 8.5 MG/DL (8.5-10.1); Osmolality,Calculated 277.5 MOS/KG (273-304); Potassium 3.7 MMOL/L (3.5-5.1)
[2020-09-27] MEDS: LACTATED RINGERS 1,000 ML IV SCH ×2 (05:43→11:26)
[2020-09-27] MEDS: HYDROmorphone 2 MG/1 ML VIAL IV PRN (07:54)
[2020-09-27] MEDS: SOTALOL 80 MG TABLET PO SCH (08:47)
[2020-09-27] MEDS: DILTIAZEM CD 180 MG CAPSULE PO SCH (08:47)
[2020-09-27] MEDS ORDERED: ASPIRIN CHEW 81 MG TABLET PO SCH (09:00)
[2020-09-27] MEDS ORDERED: LISINOPRIL/HCTZ 10-12.5 MG TABLET PO SCH (09:00)
[2020-09-27] MEDS ORDERED: ATORVASTATIN 20 MG TABLET PO SCH (09:00)
[2020-09-27] MEDS ORDERED: NON-FORMULARY MEDICATION (Aspirin 81 mg Tablet) PO SCH (09:00)
[2020-09-27] MEDS: BUPRENORPHINE NALOXONE BUCCAL SCH (10:10)
[2020-09-27 11:29] VITALS: BP 125/57
[2020-09-27] MEDS ORDERED: APIXABAN 5 MG TABLET PO SCH (21:00)
== END 2020-09-27 12:56 | disposition home or self-care (01) | DRG 271 ==
LOC: N.OR 06:58 → N.SDSINP 06:59 → N.TELES 14:46
PROVIDERS: ADMIT Surgery; ATTEND Surgery